=== PATIENT | male | born 1945 | race African-American/Black ===

== ENCOUNTER 2017-08-16 17:45 | Emergency (ER) | payer MEDICARE, MEDICAID ==
[2017-08-16 18:44] LABS: #Eosinphils 0.2 thou/uL (0.0-0.7); #Lymphocytes 0.6 thou/uL (1.20-3.40); #Monocytes 0.3 thou/uL (0.11-0.59); #Neutrophils 5.7 thou/uL (1.40-6.50); %Basophils 0.1 % (0.0-1.0); %Eosinophils 2.5 % (0.0-10.0); %Lymphocytes 8.2 % (21.0-51.0); %Monocytes 5.1 % (0.0-10.0); Hematocrit 41.6 % (42.0-52.0); Mean Platelet Volume 6.9 fL (7.4-10.4); Red Blood Cell (RBC) Count 4.66 mill/uL (4.70-6.10); White Blood Cell (WBC) Count 6.8 thou/uL (4.8-10.8)
[2017-08-16 19:05] LABS: ALT (SGPT) 7 U/L (8-55); AST (SGOT) 15 U/L (5-34); Alkaline Phosphatase 79 U/L (40-150); Anion Gap 15 mmol/L (10-20); BUN (Urea Nitrogen) 9 mg/dL (8.4-25.7); Bilirubin, Total 0.7 mg/dL (0.2-1.2); CK (CPK) 68 U/L (30-200); Calc. Creatinine Clearance 0 mL/min (70-130); Calcium 9.4 mg/dL (7.8-10.44); Carbon Dioxide 25 mmol/L (23-31); Chloride 104 mmol/L (98-107); Estimated GFR-MDRD 88; Globulin 3.5 g/dL (2.4-3.5); Protein, Total 7.6 g/dL (5.8-8.1)
[2017-08-16 19:09] LABS: Troponin I Less than 0.010 ng/mL (< 0.028)
--- NOTE | 2017-08-16 19:34 | RAD ---
PORTABLE AP CHEST X-RAY: 08/16/17 HISTORY: Respiratory distress. Dyspnea. COMPARISON: 08/25/16. The cardiac silhouette is magnified by projection and does appear mildly enlarged, but the cardiac s ilhouette is stable in size from the prior exam. Pulmonary vasculature is within normal limits. The lungs remain clear. There has been no interval change from prior study. IMPRESSION: 1. Stable chest without evidence of an acute cardiopulmonary process. 2. Mild cardiomegaly. 3. Ectasia of the thoracic aorta similar to prior study. POS: [facility]
[2017-08-16 20:06] LABS: Amphetamine Not Detected (NotDetected); Methadone Not Detected (NotDetected); Methamphetamine Not Detected (NotDetected)
== END 2017-08-16 19:49 | disposition home or self-care (01) ==
LOC: ERS 17:45
DX: J44.9 Chronic obstructive pulmonary disease, unspecified (principal); J20.9 Acute bronchitis, unspecified; Z87.891 Personal history of nicotine dependence; Z79.899 Other long term (current) drug therapy
CPT/HCPCS: 36415; 71010; 80053; 80306; 82550; 82553; 83880; 84484; 85025; 87040; 93005; 94640; 94760; J7620

== ENCOUNTER 2018-08-25 22:44 | Observation (INO) | payer MEDICARE, MEDICAID ==
[2018-08-25 23:50] LABS: #Eosinphils 0.5 thou/uL (0.0-0.7); #Lymphocytes 0.9 thou/uL (1.20-3.40); #Monocytes 0.4 thou/uL (0.11-0.59); #Neutrophils 3.6 thou/uL (1.40-6.50); %Basophils 0.2 % (0.0-1.0); %Eosinophils 8.8 % (0.0-10.0); %Lymphocytes 17.4 % (21.0-51.0); %Monocytes 6.8 % (0.0-10.0); %Neutrophils 66.8 % (42.0-75.0); Hemoglobin 12.7 g/dL (14.0-18.0); Mean Corpuscular HGB CONC 32.8 g/dL (32.0-36.0); Mean Corpuscular Hemoglobin 28.6 pg (27.0-31.0); Mean Corpuscular Volume 87.2 fL (78.0-98.0); Mean Platelet Volume 7.5 fL (7.4-10.4); Platelet Count 185 thou/uL (130-400); Red Blood Cell (RBC) Count 4.46 mill/uL (4.70-6.10); White Blood Cell (WBC) Count 5.4 thou/uL (4.8-10.8)
--- NOTE | 2018-08-25 23:52 | RAD ---
PORTABLE UPRIGHT FRONTAL RADIOGRAPH CHEST: 08/25/2018 HISTORY: Chest pain. COMPARISON: 08/16/2017 FINDINGS: No pneumothorax, pleural fluid, focal consolidation, or alveolar edema. IMPRESSION: Stable appearance of the chest. No acute findings. POS: [facility]
[2018-08-25] MEDS ORDERED: Mag-Al 1200 mg/1200 mg/30 ML UDCUP ONE (23:53)
[2018-08-25] MEDS ORDERED: Lidocaine Viscous Sol 2% 15 ml UD Cup ONE (23:53)
[2018-08-26 00:10] LABS: ALT (SGPT) 10 U/L (8-55); AST (SGOT) 19 U/L (5-34); Albumin 4.1 g/dL (3.4-4.8); Alkaline Phosphatase 73 U/L (40-150); Anion Gap 13 mmol/L (10-20); BUN (Urea Nitrogen) 18 mg/dL (8.4-25.7); Bilirubin, Total 0.5 mg/dL (0.2-1.2); CK (CPK) 99 U/L (30-200); Calc. Creatinine Clearance 0 mL/min (70-130); Calcium 9.2 mg/dL (7.8-10.44); Carbon Dioxide 21 mmol/L (23-31); Chloride 108 mmol/L (98-107); Estimated GFR-MDRD 87; Globulin 3.2 g/dL (2.4-3.5); Glucose 100 mg/dL (83-110); Potassium 4.4 mmol/L (3.5-5.1); Protein, Total 7.3 g/dL (5.8-8.1); Sodium 138 mmol/L (136-145)
[2018-08-26 00:13] LABS: CKMB 1.7 ng/mL (0-6.6); Troponin I Less than 0.010 ng/mL (< 0.028)
[2018-08-26] MEDS ORDERED: Ondansetron HCl/PF 4 MG/2 ML Vial IVP PRN (02:08)
[2018-08-26] MEDS ORDERED: Ondansetron ODT 4 MG TAB SL PRN (02:08)
[2018-08-26] MEDS ORDERED: Acetaminophen 325 MG TAB PO PRN (02:08)
[2018-08-26] MEDS ORDERED: Sodium Chloride 0.9% 1,000 ML IV SCH (02:08)
[2018-08-26 02:22] VITALS: BMI 20.2
[2018-08-26 03:28] LABS: Troponin I Less than 0.010 ng/mL (< 0.028)
[2018-08-26 05:46] LABS: Troponin I Less than 0.010 ng/mL (< 0.028)
[2018-08-26 08:01] VITALS: BP 146/83; TEMP 98
[2018-08-26] MEDS ORDERED: Prevnar 13-Val Conj/PF 0.5 ML SYRINGE IM ONE (09:00)
--- NOTE | 2018-08-26 10:51 | HP ---
PRIMARY CARE PHYSICIAN: Dr. Martinez. CHIEF COMPLAINT: Chest pain. HISTORY OF PRESENT ILLNESS: Mr. Brar is a very pleasant 73-year-old gentleman that has a history o f BPH and elevated cholesterol. He was in his usual state of health until yesterday. He says that damian stacy went to religion and then on the way back from religion, he went in to a fast food place and ate some c hicken and a piece of cake. He says when he got home which is about 30 minutes later, he started hav ing some severe pain in his upper mid chest region. He says it was like a severe burning pain and it was nonradiating. He says it was extremely bad, however, and says when it happened, he could hardly breathe at all. He apparently called EMS and they arrived and he said by the time the EMS arrived, it was starting to get better. He was taken to the emergency room and in the emergency room, he says that they gave him something to drink. It was kind of a whitish color and then after that his pain started to subside. Currently, he does not have any symptoms whatsoever. He does admit to having re flux symptoms or heartburn off and on. He denies any nausea, no vomiting, no hematemesis, no blood i n the stools or dark stools. He is in generally active and does a lot of walking and says that when he walks, he does not feel dizzy or lightheaded or have any type of chest pain. It is also noted in review of his records that he has had a stress test back in 2015 which was negative. REVIEW OF SYSTEMS: All systems are reviewed and are negative except for that mentioned in the histor y of present illness. PAST MEDICAL HISTORY: Significant for hyperlipidemia and BPH. PAST SURGICAL HISTORY: Has had a prostate surgery. ALLERGIES: No known drug allergies. SOCIAL HISTORY: He is a former smoker. He quit 2 years ago. He also says he used to have "a beer p roblem, but he stopped that 2 years ago too." He is single and his cousin is his next of kin, he wou ld like to be a FULL CODE. MEDICATIONS: Include pravastatin and metoprolol. PHYSICAL EXAMINATION: GENERAL: He is alert and oriented. He appears to be in no acute distress. VITAL SIGNS: Blood pressure was 150/90 and ranged to 135/93, heart rate 88, respiratory rate of 16, temperature is 98.3. HEENT: Pupils are equal, round, and reactive. Extraocular muscles are intact. Sclerae are anicteri c. Throat: There is no erythema, no exudates, no oral lesions. NECK: There is no adenopathy, no bruits, no jugular venous distention. LUNGS: Clear to auscultation. There is no wheezing, no rales, no rhonchi. CARDIOVASCULAR: He had a normal S1 and S2. There was no S3 or S4. No murmurs, clicks, no rubs. ABDOMEN: Soft, it is nontender, nondistended. Positive for bowel sounds. There is no rebound, no g uarding, no organomegaly. EXTREMITIES: He has no edema. There is no calf tenderness or soreness. NEUROLOGIC: His cranial nerves II-XII are intact. Muscle strength is 5/5 in both his upper and lowe r extremities. He has got good dorsalis pedis pulses bilaterally. SKIN AND INTEGUMENT: No skin changes. No rash. SIGNIFICANT LABORATORY AND X-RAY FINDINGS: On his EKG, this is by my reading, it is a sinus tachycar cherie. He has some voltage criteria for LVH, but otherwise negative and his heart rate was 84. Chest x-ray, there was no air space disease, no infiltrates. His sodium was 138, potassium 4.4, chloride i s 108, CO2 is 21, BUN of 18, creatinine 1.02, glucose is 100, troponin is less than 0.010. White blo od cell count 5.4, hemoglobin 12.7, hematocrit is 38.9, platelet count is 185,000. ASSESSMENT AND PLAN: 1. This is a pleasant 73-year-old gentleman who presents to the emergency room with chest pain. It appears that this was relieved with a GI cocktail. His symptoms started after eating and he does say that the pain had a burning quality to it. He has not had any symptoms since. He has had a relativ sal recent stress test which was negative. His troponins are all negative and there were no EKG perry ges. Therefore, I suspect that his symptoms are likely GI related and could have represented episode of reflux. Therefore, I do not believe any further workup is needed. He can be discharged from [facility] and we will send him home on omeprazole and he can follow up with his primary care physician in 1-2 weeks to determine whether or not he needs continued PPI therapy likely this can be used as n eeded for a month or so and then discontinue. 2. BPH, this is stable and he says he has an appointment with Dr. Hernandez in a couple of days. 3. Dyslipidemia. He can continue pravastatin.
== END 2018-08-26 11:53 | disposition home or self-care (01) ==
LOC: ERS 22:44 → 2SW 08-26 00:36
PROVIDERS: ADMIT Internal Medicine; ATTEND Internal Medicine
DX: R07.9 Chest pain, unspecified (principal); N40.0 Benign prostatic hyperplasia without lower urinary tract symptoms; E78.5 Hyperlipidemia, unspecified; Z87.891 Personal history of nicotine dependence; Z79.899 Other long term (current) drug therapy
CPT/HCPCS: 71045; 80053; 82550; 82553; 83880; 84484 ×3; 85025; 90662; 90670; 93005; 99285; G0008; G0009; G0378; 36415; 90471